=== PATIENT | female | born 1965 | race Caucasian/White ===

== ENCOUNTER 2025-09-04 13:21 | Inpatient (IN) | payer OTHER, MEDICAID ==
[~2025-09-04] VITALS: Ht 157.4 cm; Wt 84.9 kg
[2025-09-04 13:46] VITALS: BP 135/80
[2025-09-04] MEDS ORDERED: IOHEXOL 300 MG/ML 100 ML VIAL IV ONE (14:25)
[2025-09-04 14:40] LABS: BASO # 0.1 10*3/uL (0.0-0.1); BASO % 0.9 % (0.0-1.0); EOS # 0.3 10*3/uL (0.0-0.4); EOS % 4.0 % (1.0-4.0); MEAN CELL VOLUME 91.5 fl (81.0-99.0); MEAN CORPUSCULAR HGB 30.9 pg (27.0-31.0); MEAN PLATELET VOLUME 9.1 fl (9.6-12.3); MONO # 0.5 10*3/uL (0.1-1.0); MONO % 6.4 % (3.0-9.0); NEUT # 4.6 10*3/uL (2.3-7.9); NEUT % 60.0 % (47.0-73.0); NUCLEATED RED BLOOD CELL 0.0 % (0.0-0.0); NUCLEATED RED BLOOD CELL 0.0 10*3/uL (0.0-0.0); PLATELET COUNT AUTOMATED 239 10*3/uL (130-400); RED CELL DISTRI WIDTH 12.5 % (0-14.5)
[2025-09-04 15:08] LABS: BUN 16 mg/dl (9-23); SGPT/ALT 13 U/L (5-49)
[2025-09-04 16:29] LABS: BILIRUBIN Negative (Negative); BLOOD Negative (Negative); CLARITY Clear (Clear); COLOR Yellow (Yellow); KETONE Negative (Negative); LEUKO ESTERASE Negative (Negative); NITRITE Negative (Negative); PH 5.5 (4.5-8.0); SPECIFIC GRAVITY 1.010 (1.001-1.030); UROBILINOGEN 0.2 E.U./dl (0.0-1.0)
[2025-09-04 16:48] LABS: BACTERIA TRACE; WBC 0-2 wbc/hpf (0-5)
[2025-09-04 18:15] VITALS: BP 133/87
[2025-09-04] MEDS ORDERED: Ondansetron Hydrochloride 4 MG/2 ML VIAL IV PRN (18:20)
[2025-09-04] MEDS ORDERED: BISACODYL 5 MG TAB PO PRN (18:20)
[2025-09-04] MEDS ORDERED: TEMAZEPAM 15 MG CAP PO PRN (18:20)
[2025-09-04] MEDS ORDERED: ACETAMINOPHEN 325 MG TAB PO PRN (18:20)
[2025-09-04] MEDS ORDERED: BISACODYL 10 MG SUPP R PRN (18:20)
[2025-09-04] MEDS ORDERED: ACETAMINOPHEN 650 MG SUPP R PRN (18:20)
[2025-09-04 18:25] VITALS: BP 133/81
[2025-09-04] MEDS ORDERED: OXYBUTYNIN5 MG PO (18:50)
[2025-09-04] MEDS ORDERED: SODIUM CHLORIDE 0.9% 1,000 ML IV SCH (18:50)
[2025-09-04] MEDS ORDERED: ENULOSE10 GM/151 PO (18:50)
[2025-09-04] MEDS ORDERED: NAPROXEN500 MG PO (18:51)
[2025-09-04] MEDS ORDERED: MONTELUKAST SOD10 MG PO (18:51)
[2025-09-04] MEDS ORDERED: CETIRIZINE HYDR10 MG PO (18:52)
[2025-09-04] MEDS ORDERED: CALCIUM 600 MG PO (18:52)
[2025-09-04] MEDS ORDERED: BUPROPION HYDR150 M3 PO (18:52)
[2025-09-04] MEDS ORDERED: ACETAMINOPHEN 100 ML IV PRN (19:25)
[2025-09-04] MEDS ORDERED: VITAMIN D3125 MC1 PO (19:54)
[2025-09-04] MEDS ORDERED: ADVAIR HFA 115-12 GM INH (19:58)
[2025-09-04 20:00] VITALS: BP 113/82
[2025-09-04] MEDS ORDERED: AIRSUPRA 90-810.7 GM INH (20:00)
[2025-09-04] MEDS ORDERED: NAPROXEN 500 MG TAB PO PRN (20:05)
[2025-09-04] MEDS ORDERED: BUDESONIDE 0.5 MG AMP NEB SCH (20:20)
[2025-09-05] VITALS (11 sets, daily range): BP systolic 90–158; BP diastolic 46–87
[2025-09-05 05:38] LABS: BUN 11 mg/dl (9-23); FREE T4 1.15 ng/dl (0.89-1.76); LDL CHOLESTEROL 123 mg/dL (9-159); SGPT/ALT 12 U/L (5-49)
[2025-09-05 05:39] LABS: VITAMIN D, 25-HYDROXY 85.6 ng/mL (30-100)
[2025-09-05 06:10] LABS: BASO # 0.1 10*3/uL (0.0-0.1); BASO % 1.0 % (0.0-1.0); EOS # 0.3 10*3/uL (0.0-0.4); EOS % 5.2 % (1.0-4.0); MEAN CELL VOLUME 92.0 fl (81.0-99.0); MEAN CORPUSCULAR HGB 31.0 pg (27.0-31.0); MEAN PLATELET VOLUME 9.6 fl (9.6-12.3); MONO # 0.6 10*3/uL (0.1-1.0); MONO % 9.8 % (3.0-9.0); NEUT # 2.9 10*3/uL (2.3-7.9); NEUT % 48.8 % (47.0-73.0); NUCLEATED RED BLOOD CELL 0.0 % (0.0-0.0); NUCLEATED RED BLOOD CELL 0.0 10*3/uL (0.0-0.0); PLATELET COUNT AUTOMATED 205 10*3/uL (130-400); RED CELL DISTRI WIDTH 12.5 % (0-14.5)
[2025-09-05] MEDS ORDERED: Gadoxetate Disodium 10 ML SOL IV ONE (08:55)
[2025-09-05] MEDS ORDERED: SODIUM CHLORIDE 0.9% 50 ML IV ONE (08:55)
[2025-09-05] MEDS ORDERED: LORazepam 2 MG/ML VIAL IV ONE (09:00)
[2025-09-05] MEDS ORDERED: Lactated Ringer's Solution 1,000 ML IV ONE ×3 (10:17→13:17)
[2025-09-05] MEDS ORDERED: ACETAMINOPHEN 100 ML IV ONE (10:18)
[2025-09-05] MEDS ORDERED: MORPHINE SULFATE 10 MG/10 ML ONE (10:22)
[2025-09-05] MEDS ORDERED: diphenhydrAMINE hydrochloride 50 MG/ML VIAL IV ONE (14:03)
[2025-09-05] MEDS ORDERED: GLYCOPYRROLATE 0.4 MG/2 ML VIAL IV ONE (14:03)
[2025-09-05] MEDS ORDERED: PROPOFOL 200 MG/20 ML VIAL IV ONE (14:03)
[2025-09-05] MEDS ORDERED: Lidocaine Hydrochloride 5 ML VIAL IV ONE (14:03)
[2025-09-05] MEDS ORDERED: Ondansetron Hydrochloride 4 MG/2 ML VIAL IV ONE (14:03)
[2025-09-05] MEDS ORDERED: Phenylephrine Hydrochloride 10 MG/ML VIAL IV ONE (14:03)
[2025-09-05] MEDS ORDERED: Midazolam Hydrochloride 2 MG/2 ML VIAL IV ONE (14:03)
[2025-09-05] MEDS ORDERED: SEVOFLURANE 250 ML BOT INH ONE (14:03)
[2025-09-05] MEDS ORDERED: Esmolol Hydrochloride 100 MG/10 ML VIAL IV ONE (14:03)
[2025-09-05] MEDS ORDERED: Ketamine Hydrochloride 50 MG/5 ML SYRINGE IV ONE (14:03)
[2025-09-05] MEDS ORDERED: SUGAMMADEX SODIUM 200 MG/2 ML VIAL IV ONE (14:03)
[2025-09-05] MEDS ORDERED: Dexamethasone Sodium Phospha 4 MG/ML VIAL IV ONE (14:03)
[2025-09-05] MEDS ORDERED: ROCURONIUM BROMIDE 50 MG/5 ML SYRINGE IV ONE (14:03)
[2025-09-05] MEDS ORDERED: POTASSIUM CHLORIDE 10 MEQ in DEXTROSE 5% IN LACTATED RINGER 1,000 ML IV SCH (16:00)
[2025-09-05] MEDS ORDERED: ACETAMINOPHEN 1,000 MG/100 ML SOL IV SCH (18:00)
[2025-09-05] MEDS ORDERED: ACETAMINOPHEN 100 ML IV SCH (18:00)
[2025-09-06] VITALS: BP 95/60
[2025-09-06 06:14] LABS: BASO # 0.0 10*3/uL (0.0-0.1); BASO % 0.3 % (0.0-1.0); EOS # 0.0 10*3/uL (0.0-0.4); EOS % 0.1 % (1.0-4.0); MEAN CELL VOLUME 93.2 fl (81.0-99.0); MEAN CORPUSCULAR HGB 30.3 pg (27.0-31.0); MEAN PLATELET VOLUME 9.5 fl (9.6-12.3); MONO # 1.1 10*3/uL (0.1-1.0); MONO % 8.4 % (3.0-9.0); NEUT # 10.2 10*3/uL (2.3-7.9); NEUT % 79.2 % (47.0-73.0); NUCLEATED RED BLOOD CELL 0.0 % (0.0-0.0); NUCLEATED RED BLOOD CELL 0.0 10*3/uL (0.0-0.0); PLATELET COUNT AUTOMATED 199 10*3/uL (130-400); RED CELL DISTRI WIDTH 12.3 % (0-14.5)
[2025-09-06 06:37] LABS: BUN 12 mg/dl (9-23); SGPT/ALT 11 U/L (5-49)
[2025-09-06 09:16] VITALS: BP 110/69
[2025-09-06 12:00] VITALS: BP 89/56
[2025-09-06 16:00] VITALS: BP 125/65
[2025-09-06] MEDS ORDERED: POTASSIUM CHLORIDE 10 MEQ in DEXTROSE 5% IN LACTATED RINGER 1,000 ML IV SCH (16:00)
[2025-09-06] MEDS ORDERED: ACETAMINOPHEN 100 ML IV PRN (18:00)
[2025-09-06 20:00] VITALS: BP 100/59
[2025-09-07] VITALS: BP 110/60
[2025-09-07 05:19] LABS: BUN 7 mg/dl (9-23); SGPT/ALT 12 U/L (5-49)
[2025-09-07 06:20] LABS: BASO # 0.1 10*3/uL (0.0-0.1); BASO % 0.8 % (0.0-1.0); EOS # 0.3 10*3/uL (0.0-0.4); EOS % 3.0 % (1.0-4.0); MEAN CELL VOLUME 92.0 fl (81.0-99.0); MEAN CORPUSCULAR HGB 30.9 pg (27.0-31.0); MEAN PLATELET VOLUME 9.8 fl (9.6-12.3); MONO # 0.6 10*3/uL (0.1-1.0); MONO % 7.2 % (3.0-9.0); NEUT # 5.4 10*3/uL (2.3-7.9); NEUT % 64.6 % (47.0-73.0); NUCLEATED RED BLOOD CELL 0.0 % (0.0-0.0); NUCLEATED RED BLOOD CELL 0.0 10*3/uL (0.0-0.0); PLATELET COUNT AUTOMATED 183 10*3/uL (130-400); RED CELL DISTRI WIDTH 12.4 % (0-14.5)
[2025-09-07 08:00] VITALS: BP 118/68
[2025-09-07 12:00] VITALS: BP 123/83
== END 2025-09-07 15:03 | disposition home or self-care (01) | DRG 355 ==
LOC: ED 13:21 → 4E 17:38 → EDHOLD 17:38 → 4E 18:07
PROVIDERS: Student in an Organized Health Care Education/Training Program; Surgery; ADMIT Internal Medicine; ATTEND Internal Medicine
PROC: 0WUF0JZ Supplement Abdominal Wall with Synthetic Substitute, Open Approach (ICD-10-PCS; principal; 2025-09-05)
DX: K43.0 Incisional hernia with obstruction, without gangrene (principal); F32.A Depression, unspecified; F41.9 Anxiety disorder, unspecified; J45.909 Unspecified asthma, uncomplicated; M79.7 Fibromyalgia; M81.0 Age-related osteoporosis without current pathological fracture; K76.9 Liver disease, unspecified; N32.81 Overactive bladder; Z88.0 Allergy status to penicillin; Z88.5 Allergy status to narcotic agent; Z88.8 Allergy status to other drugs, medicaments and biological substances; Z98.891 History of uterine scar from previous surgery; Z80.0 Family history of malignant neoplasm of digestive organs; Z90.49 Acquired absence of other specified parts of digestive tract; Z98.890 Other specified postprocedural states